=== PATIENT | female | born 1970 | race Caucasian/White ===

== ENCOUNTER 2021-06-11 13:34 | Emergency (ER) | payer BC ==
[2021-06-11] MEDS ORDERED: Sodium Chloride 0.9% 10 ML Syringe FLUSH PRN (13:53)
[2021-06-11] MEDS ORDERED: Aspirin 81 MG Tab.Chew PO ONE (13:54)
[2021-06-11 15:04] LABS: PTT,PARTIAL THROMBOPLSTIN TIME 25.4 SEC (20.5-30.9)
[2021-06-11 15:06] LABS: CHLORIDE,CL 105 mmol/L (98-107); SODIUM,NA 139 mmol/L (136-145)
[2021-06-11 15:07] LABS: ANION GAP 10.5 mmol/L (5-15)
[2021-06-11 15:17] LABS: CORONAVIRUS COVID-19 NAA NEGATIVE (NEGATIVE)
[2021-06-11 15:18] LABS: RESPIRATORY SYNCYTIAL VIR NAA NEGATIVE (NEGATIVE)
[2021-06-11 19:14] VITALS: BP 126/72; PULSE 68
== END 2021-06-11 15:35 | disposition home or self-care (01) ==
LOC: VM.ED 13:34
DX: R07.89 Other chest pain (principal); I10 Essential (primary) hypertension; Z88.5 Allergy status to narcotic agent; Z20.822 Contact with and (suspected) exposure to COVID-19
CPT/HCPCS: 0241U; 36415; 71045; 80053; 83735; 83880; 84100; 84443; 84484; 85025; 85379; 85610; 85730; 86140; 93005; 93010; 99284; 99285-25; A9270-GY